=== PATIENT | female | born 1975 | race Caucasian/White ===

== ENCOUNTER 2024-08-24 15:56 | Outpatient (CLI) | payer OTHER | END 2024-08-24 15:57 | disposition home or self-care (01) | LOC: CSHULT 15:56 | PROVIDERS: ATTEND Internal Medicine | DX: E06.3 Autoimmune thyroiditis (principal); E04.1 Nontoxic single thyroid nodule | CPT/HCPCS: 76536 ==

== ENCOUNTER 2024-11-25 08:53 | Outpatient (CLI) | payer OTHER | END 2024-11-25 08:54 | disposition home or self-care (01) | LOC: CSHSLEEP 08:53 | PROVIDERS: ATTEND Family Medicine | DX: G47.9 Sleep disorder, unspecified (principal); R53.83 Other fatigue; F32.A Depression, unspecified; G47.00 Insomnia, unspecified; G47.10 Hypersomnia, unspecified | CPT/HCPCS: 95800 ==